=== PATIENT | female | born 2000 | race Caucasian/White ===

== ENCOUNTER 2019-06-25 21:06 | Observation (INO) | payer BC, MEDICAID ==
[~2019-06-25] VITALS: Ht 157.5 cm; Wt 79.4 kg
[2019-06-25] MEDS ORDERED: PREN-380 PO (21:29)
[2019-06-25 21:34] VITALS: BP 121/73
[2019-06-25] MEDS ORDERED: TERBUTALINE 1 MG/ML VIAL SUBQ SCH (22:05)
[2019-06-25] MEDS ORDERED: TERBUTALINE 1 MG/ML VIAL SUBQ ONE (22:23)
[2019-06-25 22:37] LABS: APPEARANCE,URINE CLEAR (CLEAR); BILIRUBIN,URINE NEGATIVE (NEGATIVE); BLOOD, URINE 3+ (NEGATIVE); COLOR,URINE YELLOW (YELLOW); LEUKOCYTE ESTERASE ,URINE NEGATIVE (NEGATIVE); NITRITE, URINE NEGATIVE (NEGATIVE); UGLUCOSE NEGATIVE (NEGATIVE)
[2019-06-25 22:57] LABS: RBC,URINE 11-20 (MOD) /HPF (0-5); WBC,URINE 0-5 /HPF (0-5)
[2019-06-25 22:58] LABS: URINE AMORPHOUS URATE 2+ /HPF (None Seen)
[2019-06-25] MEDS ORDERED: GENTAMICIN PER PHARMACY MC PRN (23:20)
[2019-06-25] MEDS ORDERED: GENTAMICIN 120 MG in DEXTROSE 5% 100 ML IV ONE (23:20)
[2019-06-25] MEDS: LACTATED RINGERS 1,000 ML IV SCH (23:38)
[2019-06-25] MEDS ORDERED: AMPICILLIN 2,000 MG VIAL ONE (23:58)
[2019-06-25] MEDS: AMPICILLIN 2,000 MG in NACL 0.9% 100 ML IV SCH (23:58)
[2019-06-26] MEDS ORDERED: GENTAMICIN 80 MG/2 ML VIAL ONE
[2019-06-26] MEDS ORDERED: AMPICILLIN 2,000 MG VIAL ONE ×3 (03:58→11:24)
[2019-06-26] MEDS: AMPICILLIN 2,000 MG in NACL 0.9% 100 ML IV SCH ×3 (04:01→11:48)
[2019-06-26] MEDS ORDERED: GENTAMICIN 80 MG in DEXTROSE 5% 100 ML IV SCH ×2 (05:00→16:00)
[2019-06-26] MEDS: LACTATED RINGERS 1,000 ML IV SCH ×2 (06:05→12:43)
[2019-06-26] MEDS ORDERED: GENTAMICIN 120 MG in DEXTROSE 5% 100 ML IV SCH ×3 (08:00)
--- NOTE | 2019-06-26 08:14 | NUR ---
PATIENT HAS BEEN SCREENED AND CATEGORIZED LOW NUTRITION RISK. PATIENT WILL BE SEEN WITHIN 7 DAYS OF ADMISSION. 07/02/[address]
[2019-06-26 09:20] LABS: BASOPHILS % (AUTO) 0.3 % (0.0-2.0); EOSINOPHILS % (AUTO) 0.3 % (0.0-4.0); HEMATOCRIT 32.7 % (36-48); HEMOGLOBIN 10.8 g/dL (12.0-16.0); LYMPHOCYTES % (AUTO) 15.8 % (20.5-51.1); MEAN CORPUSCULAR HEMOGLOBIN 30 pg (27-31); MEAN CORPUSCULAR HGB CONC 33 g/dL (33-37); MEAN CORPUSCULAR VOLUME 89.3 fL (80-94); MONOCYTES # (AUTO) 0.6 K/uL (0.8-1.0); MONOCYTES % (AUTO) 4.9 % (1.7-9.3); NEUTROPHILS # (AUTO) 10.1 K/uL (1.8-7.7); NEUTROPHILS % (AUTO) 78.7 % (42.2-75.2); PLATELET COUNT (AUTO) 203 K/uL (140-450); RED BLOOD CELL COUNT(AUTO) 3.66 MIL/uL (4.20-5.40); RED CELL DISTRIBUTION WIDTH 13.6 % (11.6-13.7); WHITE BLOOD COUNT (AUTO) 12.9 K/uL (4.5-11.0)
[2019-06-26 09:58] LABS: ANION GAP 11.7 (8-16); CARBON DIOXIDE 27.6 mmol/L (21-32); CREATININE 0.5 mg/dL (0.6-1.3); POTASSIUM 3.3 mmol/L (3.5-5.1)
[2019-06-26] MEDS ORDERED: NITR100C7 PO ×2 (13:56→14:03)
== END 2019-06-26 14:20 | disposition home or self-care (01) ==
LOC: MLD 21:06
PROVIDERS: ADMIT Obstetrics & Gynecology; ATTEND Obstetrics & Gynecology
DX: O26.893 Other specified pregnancy related conditions, third trimester (principal); R10.9 Unspecified abdominal pain; Z3A.30 30 weeks gestation of pregnancy
CPT/HCPCS: 36415; 76805; 80048; 81001; 85025; 85379; 96361; 96365; 96366; 96367; 96372; C1758; G0378; J0290; J1580; J3105; J7060; J7120; Q0092

== ENCOUNTER 2021-06-26 22:14 | Emergency (ER) | payer BC, MEDICAID ==
[~2021-06-26] VITALS: Ht 154.9 cm; Wt 95.3 kg
[~2021-06-26 22:14] MED LIST: NITR100C7 PO; PREN-380 PO
[2021-06-26 23:27] VITALS: BP 119/76
[2021-06-26] MEDS ORDERED: ONDANSETRON 4 MG ODT PO ONE (23:45)
[2021-06-26] MEDS ORDERED: ACETAMINOPHEN EXTRA STRENGTH 500 MG TAB PO ONE ×2 (23:45)
--- NOTE | 2021-06-26 23:45 | NUR ---
SWABS COLLECTED AND GIVEN TO DATA ENTRY PROCESSOR.
[2021-06-26] MEDS ORDERED: ONDANSETRON 4 MG ODT ONE (23:46)
[2021-06-26] MEDS ORDERED: ACETAMINOPHEN EXTRA STRENGTH 500 MG TAB ONE (23:46)
--- NOTE | 2021-06-27 01:05 | NUR ---
tempt down to 99.6.
[2021-06-27 02:00] VITALS: BP 119/76
--- NOTE | 2021-06-27 02:00 | NUR ---
Patient discharged with v/s stable. Written and verbal after care instructions given and explained. Patient verbalized understanding. Ambulatory with steady gait. All questions addressed prior to discharge. Advised to follow up with PMD.
== END 2021-06-27 02:00 | disposition home or self-care (01) ==
LOC: MED 22:14
DX: U07.1 COVID-19 (principal); Z79.899 Other long term (current) drug therapy
CPT/HCPCS: 87426; 99283; Q0162; U0003

== ENCOUNTER 2022-09-15 09:57 | Emergency (ER) | payer MEDICAID ==
[~2022-09-15] VITALS: Ht 157.5 cm; Wt 83.9 kg
[2022-09-15 10:18] VITALS: BP 133/93
--- NOTE | 2022-09-15 11:23 | NUR ---
AMBULATED TO ER BED 3
--- NOTE | 2022-09-15 11:27 | NUR ---
22 Y/O FEMALE BIB SELF C/O X5 NOSEBLEEDS WITHIN X1 WEEK WITH NASAL CONGESTION WITH SINUS PRESSURE. PER PT NOSEBLEEDS STARTED WHEN SHE WOULD BLOW HER NOSE FOR THE NASAL CONGESTION, TODAY NOTED NOSEBLEED AFTER SHE WOKE UP, NO BLEEDING NOTED AT BEDSIDE AT THIS TIME. C/O HEADACHE, DENIES ANY MEDICATION BEFORE PRESENTATION PMH: DENIES
--- NOTE | 2022-09-15 11:31 | NUR ---
DR ESCUDERO AT BEDSIDE FOR EVAL
[2022-09-15] MEDS ORDERED: OXYM20SP1 NS (11:45)
--- NOTE | 2022-09-15 12:03 | NUR ---
Patient discharged with v/s stable. Written and verbal after care instructions about upper respiratory infection, nosebleed given and explained. Patient alert, oriented and verbalized understanding of instructions. Ambulatory with steady gait. All questions addressed prior to discharge. ID band removed. Patient advised to follow up with PMD. Rx ofafrin 15ml given. Patient educated on indication of medication including possible reaction and side effects. Opportunity to ask questions provided and answered.
== END 2022-09-15 12:02 | disposition home or self-care (01) ==
LOC: MED 09:57
DX: J06.9 Acute upper respiratory infection, unspecified (principal); R04.0 Epistaxis
CPT/HCPCS: 93005; 99283

== ENCOUNTER 2023-01-12 11:29 | Emergency (ER) | payer MEDICAID ==
[~2023-01-12] VITALS: Ht 157.5 cm; Wt 108.9 kg
[~2023-01-12 11:29] MED LIST changes: +OXYM20SP1 NS
[2023-01-12 11:47] VITALS: BP 156/90
--- NOTE | 2023-01-12 12:00 | NUR ---
PT RC'D IN BED BED 3, PT WALKED IN [facility]M HOME C/O CHEST PAIN THAT IS NON RADIATING, ALONG WITH L FLANK PAIN AND L ARM NUMBNESS. PT STATES THESE ALL STARTED 3 MONTHS AGO AND COMES AND GOES. PT STATES THAT SHE DOES NOT KNOW WHAT CAUSES THE PAIN AND/OR NUMBNESS. PT DENIES SOB & N/V PMH: OVARIAN CYST REMOVAL.
--- NOTE | 2023-01-12 12:15 | NUR ---
EKG PERFORMED AND GIVEN TO DOYLE
--- NOTE | 2023-01-12 12:24 | NUR ---
PT RESTING IN BED AWAITING FURSTHER ORDERS
[2023-01-12 12:35] LABS: BASOPHILS # (AUTO) 0.1 K/uL (0.00-0.22); BASOPHILS % (AUTO) 0.6 % (0.0-2.0); EOSINOPHILS # (AUTO) 0.3 K/uL (0-0.4); EOSINOPHILS % (AUTO) 2.6 % (0.0-4.0); HEMATOCRIT 37.2 % (36-48); HEMOGLOBIN 12.3 g/dL (12.0-16.0); LYMPHOCYTES # (AUTO) 2.5 K/uL (2.5-16.5); MEAN CORPUSCULAR HEMOGLOBIN 25 pg (27-31); MEAN CORPUSCULAR HGB CONC 33 g/dL (33-37); MONOCYTES # (AUTO) 0.6 K/uL (0.8-1.0); MONOCYTES % (AUTO) 5.7 % (1.7-9.3); NEUTROPHILS # (AUTO) 7.3 K/uL (1.8-7.7); NEUTROPHILS % (AUTO) 68.1 % (42.2-75.2); PLATELET COUNT (AUTO) 272 K/uL (140-450); RED BLOOD CELL COUNT(AUTO) 4.96 MIL/uL (4.20-5.40); RED CELL DISTRIBUTION WIDTH 16.1 % (11.6-13.7); WHITE BLOOD COUNT (AUTO) 10.7 K/uL (4.8-10.8)
[2023-01-12 13:08] LABS: ANION GAP 10.1 (8-16); CARBON DIOXIDE 29.6 mmol/L (21-32); CREATININE 0.7 mg/dL (0.6-1.3); POTASSIUM 3.7 mmol/L (3.5-5.1); TOTAL BILIRUBIN 0.2 mg/dL (0.0-1.0)
[2023-01-12] MEDS: KETOROLAC 30 MG/ML VIAL IM ONE (13:10)
[2023-01-12 13:30] LABS: APPEARANCE,URINE CLEAR (CLEAR); BILIRUBIN,URINE NEGATIVE (NEGATIVE); BLOOD, URINE NEGATIVE (NEGATIVE); COLOR,URINE YELLOW (YELLOW); LEUKOCYTE ESTERASE ,URINE TRACE (NEGATIVE); NITRITE, URINE NEGATIVE (NEGATIVE); UGLUCOSE NEGATIVE (NEGATIVE)
[2023-01-12] MEDS ORDERED: VOL25 PO (14:11)
[2023-01-12 14:20] VITALS: BP 126/66
--- NOTE | 2023-01-12 14:20 | NUR ---
Patient discharged with v/s stable. Written and verbal after care instructions given and explained. Patient alert, oriented and verbalized understanding of instructions. Ambulatory with steady gait. All questions addressed prior to discharge. ID band removed. Patient advised to follow up with PMD. Rx of DICLOFENAC SODIUM given. Patient educated on indication of medication including possible reaction and side effects. Opportunity to ask questions provided and answered.
== END 2023-01-12 14:20 | disposition home or self-care (01) ==
LOC: MED 11:29
DX: R07.89 Other chest pain (principal); Z79.899 Other long term (current) drug therapy
CPT/HCPCS: 36415; 71045; 80053; 81003; 83880; 84484; 85025; 85379; 93005; 96372; 99285; J1885; Q0092